=== PATIENT | female | born 1965 | race African-American/Black ===

== ENCOUNTER 2016-07-31 05:33 | Day surgery (SDC) | payer OTHER ==
[2016-07-30 11:49] VITALS: BMI 36.0
[2016-07-31] VITALS (8 sets, daily range): BP systolic 99–122; BP diastolic 73–81; PULSE 86–98; RESP 18–28; Ht 154.9 cm; Wt 80.5 kg
[~2016-07-31] VITALS: Ht 154.9 cm; Wt 80.5 kg
[~2016-07-31 05:33] MED LIST: ALPR0.25 PO; ANAS1TAB PO; HYDR-902 PO; METO10TA92 PO; OXYC-209 PO; POTA10TA18 PO; SIMV5TAB50 PO
--- NOTE | 2016-07-31 06:39 | RADRPT ---
PROCEDURE: CHEST - 1 VIEW CLINICAL INDICATION: 51-year-old female with chest pain. This is a preoperative evaluation. TECHNIQUE: A single frontal AP view of the chest was performed portably. The images were reviewed on a PACS workstation. COMPARISON: Chest x-ray March 23, 2016. FINDINGS: The cardiomediastinal silhouette is prominent but within normal limits. There is no evidence for an infiltrate. There is no evidence for congestive heart failure. There is no evidence for pneumothor ax. The osseous structures are intact. IMPRESSION: No evidence for active cardiopulmonary disease. .Adryan Ybarra MD, Date Time Electronically viewed and signed by .Adryan Ybarra MD, on 07/31/2016 06:39 .M/
[2016-07-31] MEDS ORDERED: VANCOMYCIN 1 GM in NS 250 ML IVPB SCH (07:00)
[2016-07-31] MEDS ORDERED: SOD CHLORIDE 0.9% 1,000 ML IV SCH (07:00)
[2016-07-31 07:38] LABS: ADD SCAN DIFF NO
[2016-07-31] MEDS ORDERED: ISOSULFAN BLUE 1% 5 ML INJ SC ONE (07:41)
[2016-07-31 07:46] LABS: BASOPHILS % 0.5 % (0.0-2.0); EOSINOPHILS # 0.1 10^3/ul (0.0-0.5); EOSINOPHILS % 2.2 % (0.0-7.0); HEMOGLOBIN 13.9 g/dl (12.0-16.0); LYMPHOCYTES # 1.9 10^3/ul (0.8-2.9); LYMPHOCYTES % 33.5 % (15.0-51.0); MEAN CORPUSCULAR HEMOGLOBIN 27.7 pg (29.0-33.0); MEAN CORPUSCULAR HGB CONC 31.6 g/dl (32.0-37.0); MEAN CORPUSCULAR VOLUME 87.6 fl (82.0-101.0); MONOCYTE # 0.5 10^3/ul (0.3-0.9); NEUTROPHILS % 54.4 % (39.0-77.0); PLATELET COUNT 225 10^3/UL (140-415); RED BLOOD COUNT 5.02 10^6/ul (4.20-5.40); RED CELL DISTRIBUTION WIDTH 12.7 % (11.5-14.5); WHITE BLOOD COUNT 5.6 10^3/ul (4.8-10.8)
[2016-07-31] MEDS ORDERED: PROPOFOL 100 ML ONE (07:49)
[2016-07-31] MEDS ORDERED: LIDOCAINE 2% (SDV) 5 ML INJ ONE (07:50)
[2016-07-31 08:00] LABS: INR 0.95; PROTIME 12.7 Sec (12.2-14.2)
[2016-07-31] MEDS ORDERED: hydrALAzine 20 MG INJ IV PRN (08:00)
[2016-07-31] MEDS ORDERED: EPHEDrine SULFATE 50 MG/5 ML SYG IV PRN (08:00)
[2016-07-31] MEDS ORDERED: OXYCODONE/ACETAMINOPHEN (5/325) TAB PO PRN ×2 (08:00)
[2016-07-31] MEDS ORDERED: HYDROmorphONE (0.2 MG/ML) 10ML SYG IV PRN ×3 (08:00)
[2016-07-31] MEDS ORDERED: ONDANSETRON 4 MG INJ IV PRN (08:00)
[2016-07-31] MEDS ORDERED: LABETALOL HCL 20MG INJ IV PRN (08:00)
[2016-07-31] MEDS ORDERED: MEPERIDINE 25 MG INJ IV PRN (08:00)
[2016-07-31] MEDS ORDERED: FENTAnyl 50 MCG/ML VIAL IV PRN ×3 (08:00)
[2016-07-31 08:01] LABS: PARTIAL THROMBOPLASTIN TIME 34.3 Sec (25.0-35.0)
[2016-07-31 08:08] LABS: CALCIUM 9.3 mg/dl (8.4-10.2); CREATININE 0.93 mg/dl (0.44-1.00); POTASSIUM 3.8 mmol/L (3.5-5.1)
[2016-07-31] MEDS ORDERED: DEXAMETHASONE 4 MG/ML 1 ML INJ ONE (08:40)
[2016-07-31] MEDS ORDERED: ONDANSETRON 4 MG INJ ONE (08:40)
--- NOTE | 2016-07-31 10:13 | OPR ---
DATE OF OPERATION: 07/31/2016 PREOPERATIVE DIAGNOSIS: Locally advanced left breast cancer, need for axillary dissection with axil demetrius debulking. POSTOPERATIVE DIAGNOSIS: Locally advanced left breast cancer, need for axillary dissection with axi llary debulking. PROCEDURE: Left axillary dissection. SURGEON: Javier Rodriguez MD PLANT WRAPPER: Inga Almodovar MD ANESTHESIA: General. ANESTHESIOLOGIST: Dr. Mcneil. INDICATIONS FOR PROCEDURE: The patient is an unfortunate 51-year-old female who presented with a la rge fungating left breast cancer. She had a palliative left mastectomy several months ago. She dev eloped evidence of a large axillary recurrence or residual disease. Radiation oncologist requested axillary debulking prior to radiation treatment. She consented and was scheduled for surgery. DESCRIPTION OF PROCEDURE: The patient was brought to the operating theater, placed under general an esthesia. The left breast, chest wall and axillary region were prepped and draped in usual sterile fashion. Approximately 6 cm incision was made in the left axillary hairline. Subcutaneous tissue w as dissected with cautery down through to the clavipectoral fascia. There was obvious metastatic di sease with large matted lymph nodes. With blunt dissection along the chest wall, the long thoracic nerve was identified and kept out of harm's way. More superiorly, the axillary vein and thoracodors al neurovascular bundles were identified and kept out of harm's way. In this fashion, the level I a nd level II lymph nodes consistent with large metastatic disease were meticulously harvested using t he LigaSure device. The specimen was removed and sent for pathologic analysis. The wound was then irrigated. Minimal bleeding was controlled with cautery. A #10 English drain was then brought throu gh the left mid axillary line, cut to size and laid within the axilla. It was secured in place with 2-0 nylon suture in a standard fashion. Incision was then closed with a 4-0 Vicryl suture in subcu ticular fashion. Benzoin and Steri-Strips were applied. The patient tolerated the procedure well. The estimated blood loss was 30 mL. There were no complications and the patient was transported in stable condition to the recovery room. Dictated By: JAVIER RODRIGUEZ MD TL/SUE Conf#: [id number] DID#: [id number]
--- NOTE | 2016-07-31 17:19 | RADRPT ---
Vent Rate: 90 bpm RR Interval: 0 msec IA Interval: 160 msec QRS Duration: 76 msec QT Interval: 408 msec QTC Interval: 499 msec P-R-T [place]: 34 - -27 - 22 degrees Normal sinus rhythm Minimal voltage criteria for LVH, may be normal variant Prolonged QT Abnormal ECG Electronically Signed By: Harris Stephen [id number]
== END 2016-07-31 10:23 | disposition home or self-care (01) ==
LOC: SDS 05:33
PROVIDERS: ATTEND Surgery Surgical Oncology
DX: C50.912 Malignant neoplasm of unspecified site of left female breast (principal); C77.3 Secondary and unspecified malignant neoplasm of axilla and upper limb lymph nodes
CPT/HCPCS: 38500; 71010; 80048; 85025; 85610; 85730; 88307; 93005; J1100; J2405; J3010; J3370; Z7512; Z7610; Q9968